=== PATIENT | male | born 1970 | race Caucasian/White ===

== ENCOUNTER 2017-12-06 18:35 | Emergency (ER) | payer OTHER, SELFPAY ==
--- NOTE | 2017-12-06 18:53 | PC.NURSE ---
Went in to triage patient who was under arrest and in the custody of police. Pt was being loud and yelling at the officers and myself when I went in to triage him. I asked him if he was going to be cooperative and answer questions he responded that he was. I started to get a set of v/s on him and he advised that he wanted the officers to leave the room. The officers advised him he was under arrest and they were not going to leave him. PT jerked off his b/p cuff and threw it on the ground. Pt refused any further treatment, officers placed cuffs on him and advised he was gong to retirement since refusing treatment.
== END 2017-12-06 19:06 | disposition left against medical advice (07) ==
LOC: ER 18:44
PROVIDERS: Emergency Provider Emergency Medicine; Family Provider Emergency Medicine; PCP Emergency Medicine
DX: Z02.89 Encounter for other administrative examinations (principal)

== ENCOUNTER 2017-12-28 11:58 | Emergency (ER) | payer BC, SELFPAY ==
[2017-12-28 11:58] VITALS: BP 157/91; PULSE 98; RESP 18; TEMP 36.6; O2SAT 98; BMI 25.1
--- NOTE | 2017-12-28 12:04 | PC.NURSE ---
Pt asked to have B/P cuff and pulse ox monitors removed after his blood pressure was taken. TAYLA DIANA at BS
--- NOTE | 2017-12-28 12:11 | [facility].EDOD ---
ED Disposition Clinical Impression: Alcohol abuse Disposition: Home, Self-Care Condition on Discharge: he left [facility] after refusing to allow us to do labs or urine drug screen, says he was just drinking and passed out Instructions: DI for Alcohol Abuse Referrals: Rashi Narvaez MD [Primary Care Provider] - - Critical Care Critical Care Time: No Attestation: On 12/28/17, the high probability of a clinically significant, sudden or life threatening deterioration of the following system(s) required my full and direct attention, intervention and personal management. The time I documented below is in addition to time spent performing reported procedures but includes the following listed in this critical care notation. Medical Decision Making - Vasiliy Inquiry Pt receiving controlled substance: No Vasiliy was queried for this patient: No Vital Signs: 12/28/17 11:58 12/28/17 12:24 Temperature 97.8 F 97.8 F Temperature Source Oral Oral Pulse Rate 98 H Pulse Rate [Right Brachial] 98 H Respiratory Rate 18 18 Blood Pressure 157/91 Blood Pressure [Right Arm] 157/91 Blood Pressure Mean [Right Arm] 113 Blood Pressure Source [Right Arm] Automatic Cuff Blood Pressure Position Sitting Blood Pressure Position [Right Arm] Sitting 02 Sat by Pulse Oximetry 98 Oxygen Delivery Method Room Air Room Air Overdose HPI - General Chief Complaint: Overdose Stated Complaint: possible overdose Time Seen by Provider: 12/28/17 12:10 Mode of Arrival: Family Vehicle Limitations: No Limitations Description of Symptoms (Recalled from ER Triage Doc. by RN): Pt was brought in per his friend r/t possible overdose. Pt is awake, alert and oriented at this time. According to pt friend who brought him in he was called by others who were with friend stated pt needed to go to the hospital. Pt reports he has been drinking liquor and beer and has smoke marajuana today. - History of Present Illness complaint: accidental overdose Time: 00:00 Intent: other How Overdose Was Discovered: family/friend present at time Context: Accidental Overdose: wanted to get high Treatments Prior to Arrival: none - Related Data Allergies Allergy/AdvReac Type Severity Reaction Status Date / Time No Known Allergies Allergy Unverified 10/29/17 15:26 ROS Obtained: Yes All systems reviewed & no additional complaints says he is about half sober at present - Constitutional Constitutional: Reports system reviewed and no additional complaints, except as docu - Eyes Eyes: Reports system reviewed and no additional complaints, except as docu - ENT Ears, Nose, Mouth, and Throat: Reports system reviewed and no additional complaints, except as docu - Cardiovascular Cardiovascular: Reports system reviewed and no additional complaints, except as docu - Respiratory Respiratory: Yes system reviewed and no additional complaints, except as docu - Gastrointestinal Gastrointestingal: Reports: system reviewed and no additional complaints, except as docu - Genitourinary Male Genitourinary: Reports system reviewed and no additional complaints, except as docu - Musculoskeletal Musculoskeletal: Reports system reviewed and no additional complaints, except as docu - Neurologic Neurologic: Reports system reviewed and no additional complaints, except as docu Comments: admits to be inebriated - Hematologic/Lymphatic Henatologic/Lymphatic: Reports system reviewed and no additional complaints, except as docu Physical Exam - General General appearance: alert, in no apparent distress, appears intoxicated - Head Head exam: atraumatic, normocephalic - Eye Eye exam: Present: normal appearance, PERRL, EOMI - ENT ENT exam: Present: normal exam, normal oropharynx - Neck Neck exam: Present: normal inspection, full ROM - Chest Chest inspection: Present: normal inspection, symmetric chest wall rise - Respiratory Respiratory exam: Present: norm
--- NOTE | 2017-12-28 12:14 | ED_ITS ---
ED Disposition Clinical Impression: Alcohol abuse Disposition: Home, Self-Care Condition on Discharge: he left [facility] after refusing to allow us to do labs or urine drug screen, says he was just drinking and passed out Instructions: DI for Alcohol Abuse Referrals: Rashi Narvaez MD [Primary Care Provider] - - Critical Care Critical Care Time: No Attestation: On 12/28/17, the high probability of a clinically significant, sudden or life threatening deterioration of the following system(s) required my full and direct attention, intervention and personal management. The time I documented below is in addition to time spent performing reported procedures but includes the following listed in this critical care notation. Medical Decision Making - Vasiliy Inquiry Pt receiving controlled substance: No Vasiliy was queried for this patient: No Vital Signs: 12/28/17 11:58 12/28/17 12:24 Temperature 97.8 F 97.8 F Temperature Source Oral Oral Pulse Rate 98 H Pulse Rate [Right Brachial] 98 H Respiratory Rate 18 18 Blood Pressure 157/91 Blood Pressure [Right Arm] 157/91 Blood Pressure Mean [Right Arm] 113 Blood Pressure Source [Right Arm] Automatic Cuff Blood Pressure Position Sitting Blood Pressure Position [Right Arm] Sitting 02 Sat by Pulse Oximetry 98 Oxygen Delivery Method Room Air Room Air Overdose HPI - General Chief Complaint: Overdose Stated Complaint: possible overdose Time Seen by Provider: 12/28/17 12:10 Mode of Arrival: Family Vehicle Limitations: No Limitations Description of Symptoms (Recalled from ER Triage Doc. by RN): Pt was brought in per his friend r/t possible overdose. Pt is awake, alert and oriented at this time. According to pt friend who brought him in he was called by others who were with friend stated pt needed to go to the hospital. Pt reports he has been drinking liquor and beer and has smoke marajuana today. - History of Present Illness complaint: accidental overdose Time: 00:00 Intent: other How Overdose Was Discovered: family/friend present at time Context: Accidental Overdose: wanted to get high Treatments Prior to Arrival: none - Related Data Allergies Allergy/AdvReac Type Severity Reaction Status Date / Time No Known Allergies Allergy Unverified 10/29/17 15:26 ROS Obtained: Yes All systems reviewed & no additional complaints says he is about half sober at present - Constitutional Constitutional: Reports system reviewed and no additional complaints, except as docu - Eyes Eyes: Reports system reviewed and no additional complaints, except as docu - ENT Ears, Nose, Mouth, and Throat: Reports system reviewed and no additional complaints, except as docu - Cardiovascular Cardiovascular: Reports system reviewed and no additional complaints, except as docu - Respiratory Respiratory: Yes system reviewed and no additional complaints, except as docu - Gastrointestinal Gastrointestingal: Reports: system reviewed and no additional complaints, except as docu - Genitourinary Male Genitourinary: Reports system reviewed and no additional complaints, except as docu - Musculoskeletal Musculoskeletal: Reports system reviewed and no additional complaints, except as docu - Neurologic Neurologic: Reports system reviewed and no additional complaints, except as docu Comments: a
[2017-12-28 12:24] VITALS: BP 157/91; PULSE 98; RESP 18; TEMP 36.6; O2SAT 98
== END 2017-12-28 12:26 | disposition home or self-care (01) ==
PROVIDERS: Emergency Provider Family Medicine; Family Provider Emergency Medicine; PCP Emergency Medicine
DX: F10.10 Alcohol abuse, uncomplicated (principal); F12.10 Cannabis abuse, uncomplicated; Z72.89 Other problems related to lifestyle
CPT/HCPCS: 99281